=== PATIENT | female | born 1945 | race Caucasian/White ===

== ENCOUNTER 2017-12-06 12:47 | Emergency (ER) | payer OTHER, MEDICARE ==
[~2017-12-06] VITALS: Ht 167.6 cm; Wt 68.4 kg
[2017-12-06 12:59] VITALS: TEMP 36.7; Ht 167.6 cm; Wt 68.4 kg
[2017-12-06 13:44] VITALS: O2SAT 95
[2017-12-06 14:00] LABS: BASO % 0.3 %; BASO ABS # 0.03 K/uL (0-0.2); EOS % 0.7 %; EOS ABS # 0.07 K/uL (0-0.5); HEMATOCRIT 42.4 % (37-47); HEMOGLOBIN 14.4 g/dL (12.0-16.0); IG# 0.02 K/uL (0.00-0.02); LYMPH % 15.2 %; LYMPH ABS # 1.56 K/uL (1.2-3.4); MEAN CELL VOLUME 98.8 fL (80-100); MEAN CORPUSCULAR HEMOGLOBIN 33.6 pg (25-34); MEAN PLATELET VOLUME 8.7 fL (7.4-10.4); MONO % 5.7 %; MONO ABS # 0.59 K/uL (0.11-0.59); NEUT % 77.9 %; PLATELET COUNT 444 K/uL (130-400); RED CELL DISTRIBUTION WIDTH CV 15.6 % (11.5-14.5); RED CELL DISTRIBUTION WIDTH SD 56.9 fL (36.4-46.3); WHITE BLOOD COUNT 10.27 K/uL (4.8-10.8)
[2017-12-06] MEDS ORDERED: OPTIRAY 320 IV PRN (14:00)
[2017-12-06 14:11] LABS: PTT PATIENT 27.1 SECONDS (21.0-31.0)
[2017-12-06 14:21] LABS: CALCIUM 9.2 mg/dl (8.5-10.1); CREATININE 1.35 mg/dl (0.60-1.20); POTASSIUM 4.4 mmol/L (3.5-5.1)
--- NOTE | 2017-12-06 14:52 | DIAGNOSTIC IMAGING REPORT ---
CT ANGIOGRAM OF THE CHEST COMBO CLINICAL HISTORY: Thoracic back pain. COMPARISON STUDY: No priors. TECHNIQUE: Before and following the IV administration of 85 cc of Optiray 320, CT angiogram of the chest was performed from the thoracic inlet to the upper abdomen utilizing the dissection protocol. Images are reviewed in the axial, sagittal, and coronal planes. 3-D MIPS images are created and assessed. IV contrast was administered without complication. A dose lowering technique was utilized adhering to the principles of ALARA. CT DOSE: 272.42 mGy.cm FINDINGS: Thyroid: Imaged portions of the thyroid gland are normal in size and attenuation. Thoracic aorta: There is atherosclerotic calcification of the thoracic aorta, which is normal in caliber and demonstrates 4-vessel variant arch anatomy. No dissection is seen. Pulmonary vasculature: The main pulmonary arteries are dilated suggesting pulmonary artery hypertension. There are no central filling defects identified in the pulmonary vessels to suggest pulmonary embolus. Note that this examination was not specifically protocoled to assess for pulmonary emboli. Heart: The heart is enlarged and without pericardial effusion. There are coronary artery calcifications. Lungs and pleural spaces: Moderate to advanced emphysema is identified. The trachea is patent. There is a 1.1 cm spiculated nodule in the left upper lobe seen on image #184. No additional pulmonary lesion is identified. No airspace consolidation is seen and there is no pleural effusion. There are foci of bibasilar scarring/atelectasis. Lower neck: No supraclavicular adenopathy is identified. Mediastinum: There is a large heterogeneous mass lesion versus nelida aggregate centered in the AP window. This measures approximately 4.5 x 6.5 x 5 cm. This encases the left mainstem bronchus with greater than 50% luminal narrowing. This partially encases the esophagus which is deviated to the right, and also causes mass effect on the left main pulmonary artery. The left main pulmonary artery is widely patent. No additional mediastinal lesion is seen. Heike: Clear. Axillae: There is no axillary lymphadenopathy. Upper abdomen: There is an aneurysm of the upper abdominal aorta at and just below the level of the esophageal hiatus. This measures 4.4 x 3.9 cm. Thrombus is noted within the aneurysm sac. Partially visualized upper abdominal viscera is within normal limits. Skeletal structures: The skeletal structures are osteopenic. No lytic or blastic bony lesions are seen. Mild thoracic scoliosis is noted. IMPRESSION: 1. There is no evidence of pulmonary embolus in the main, lobar, or segmental pulmonary arteries. 2. Cardiomegaly and emphysema. 3. There is a 1.1 cm spiculated nodule in the left upper lobe. This should be considered lung cancer until proven otherwise. 4. 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 This encases the left mainstem bronchus with greater than 50% narrowing. This also partially encases the esophagus which is deviated to the right as well as the left main pulmonary artery. This is also consistent with neoplasm. 5. There is no airspace consolidation typical for pneumonia or pleural effusion. 6. There is a 4.4 x 3.9 cm aneurysm of the proximal abdominal aorta located at and below the level of the esophageal hiatus. 7. Additional findings as above. Electronically signed by: Julian Auguste M.D. 12/06/2017 2:50 PM Dictated Date/Time: 12/06/2017 2:38 PM
[2017-12-06] MEDS ORDERED: TYLOTC500 PO (14:59)
[2017-12-06] MEDS ORDERED: CZR50 PO (14:59)
[2017-12-06] MEDS ORDERED: LEVO150T PO (14:59)
[2017-12-06] MEDS ORDERED: LORAZEPAM 1 MG TAB SL STA (15:29)
[2017-12-06 18:19] VITALS: BP 137/81; PULSE 115; O2SAT 95
--- NOTE | 2017-12-06 19:06 | EMERGENCY ROOM VISIT NOTE ---
History Report prepared by Armen: Naomi Govea Under the Supervision of: Dr. Manuel Villa M.D. First contact with patient: 13:23 Chief Complaint: BACK PAIN Stated Complaint: BACK AND SIDE PAIN History of Present Illness The patient is a 72 year old female who presents to the Emergency Room with complaints of right-sided back pain beginning 2 weeks ago. She states that laying on her back exacerbates her pain. She denies injuring her back, but reports that she has been coughing for about a year which she thinks may have caused her pain. She states that she smokes a half a pack or more per day and that she has emphysema. The patient reports that she has been feeling more short of breath lately, and that she has also has had brief sharp chest pains. She states that she has been having this chest pain only over the last couple of days and that it is waxing and waning. The patient denies fevers, abdominal pain, blood in her urine, and swelling in her legs. She reports that she has hypertension, but that she has never had a blood clot before. The patient states that she has a sedentary lifestyle. Source of History: patient Onset: 2 weeks ago Position: back (right-sided) Quality: other (pain) Modifying Factors (Worsening): other (laying on back) Associated Symptoms: + cough, + chest pain (sharp), + SOB, No fevers, No abdominal pain Note: denies: blood in urine, swelling in legs Review of Systems See HPI for pertinent positives & negatives. A total of 10 systems reviewed and were otherwise negative. Past Medical & Surgical Medical Problems: (1) Emphysema lung Family History No pertinent family history Social History Smoking Status: Current Every Day Smoker Marital Status: single Current/Historical Medications Scheduled Acetaminophen (Tylenol), 1,000 MG PO Q4 Levothyroxine Sodium (Synthroid), 150 MCG PO DAILY Losartan Potassium (Losartan Potassium), 50 MG PO DAILY Allergies Coded Allergies: No Known Allergies (Unverified , 12/06/17) Physical Exam Vital Signs Date Time Temp Pulse Resp B/P (MAP) Pulse Ox O2 Delivery O2 Flow Rate FiO2 12/06/17 18:19 115 18 137/81 95 12/06/17 16:42 120 22 161/92 94 Room Air 12/06/17 13:44 95 Room Air 12/06/17 12:59 36.7 104 20 149/74 95 Room Air Physical Exam Constitutional: Vital signs reviewed. Eyes: Pupils are equal round reactive to light. Conjunctiva are noninjected. ENT: Pharynx is clear without erythema or exudate. Mucous membranes are moist. Neck supple without meningeal signs. Respiratory: Clear to auscultation bilaterally. Breath sounds are equal bilaterally. Cardiovascular: Regular rate and rhythm. No rubs or gallops. GI: Soft, nondistended and nontender. Bowel sounds are present. Musculoskeletal: No peripheral edema. No lower extremity tenderness. No tenderness over the ribs. Integumentary: No cyanosis. Neurological: The patient is awake and alert. No focal deficits. Psychiatric: Normal affect. Medical Decision & Procedures ER Provider Diagnostic Interpretation: Radiology results as stated below per my review and the radiologist's interpretation: CT ANGIOGRAM OF THE CHEST COMBO CLINICAL HISTORY: Thoracic back pain. COMPARISON STUDY: No priors. TECHNIQUE: Before and following the IV administration of 85 cc of Optiray 320, CT angiogram of the chest was performed from the thoracic inlet to the upper abdomen utilizing the dissection protocol. Images are reviewed in the axial, sagittal, and coronal planes. 3-D MIPS images are created and assessed. IV contrast was administered without complication. A dose lowering technique was utilized adhering to the principles of ALARA. CT DOSE: 272.42 mGy.cm FINDINGS: Thyroid: Imaged portions of the thyroid gland are normal in size and attenuation. Thoracic aorta: There is atherosclerotic calcification of the thoracic aorta, which is normal in caliber and demonstrates 4-vessel variant arch anatomy. No dissection is seen. Pulmonary vasculature: The main pulmonary arteries are dilated suggesting pulmonary artery hypertension. There are no central filling defects identified in the pulmonary vessels to suggest pulmonary embolus. Note that this examination was not specifically protocoled to assess for pulmonary emboli. Heart: The heart is enlarged and without pericardial effusion. There are coronary artery calcifications. Lungs and pleural spaces: Moderate to advanced emphysema is identified. The trachea is patent. There is a 1.1 cm spiculated nodule in the left upper lobe seen on image #184. No additional pulmonary lesion is identified. No airspace consolidation is seen and there is no pleural effusion. There are foci of bibasilar scarring/atelectasis. Lower neck: No supraclavicular adenopathy is identified. Mediastinum: There is a large heterogeneous mass lesion versus nelida aggregate centered in the AP window. This measures approximately 4.5 x 6.5 x 5 cm. This encases the left mainstem bronchus with greater than 50% luminal narrowing. This partially encases the esophagus which is deviated to the right, and also causes mass effect on the left main pulmonary artery. The left main pulmonary artery is widely patent. No additional mediastinal lesion is seen. Heike: Clear. Axillae: There is no axillary lymphadenopathy. Upper abdomen: There is an aneurysm of the upper abdominal aorta at and just below the level of the esophageal hiatus. This measures 4.4 x 3.9 cm. Thrombus is noted within the aneurysm sac. Partially visualized upper abdominal viscera is within normal limits. Skeletal structures: The skeletal structures are osteopenic. No lytic or blastic bony lesions are seen. Mild thoracic scoliosis is noted. IMPRESSION: 1. There is no evidence of pulmonary embolus in the main, lobar, or segmental pulmonary arteries. 2. Cardiomegaly and emphysema. 3. There is a 1.1 cm spiculated nodule in the left upper lobe. This should be considered lung cancer until proven otherwise. 4. 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 This encases the left mainstem bronchus with greater than 50% narrowing. This also partially encases the esophagus which is deviated to the right as well as the left main pulmonary artery. This is also consistent with neoplasm. 5. There is no airspace consolidation typical for pneumonia or pleural effusion. 6. There is a 4.4 x 3.9 cm aneurysm of the proximal abdominal aorta located at and below the level of the esophageal hiatus. 7. Additional findings as above. Electronically signed by: Julian Auguste M.D. 12/06/2017 2:50 PM Dictated Date/Time: 12/06/2017 2:38 PM Laboratory Results 12/06/17 13:50 Red Blood Count 4.29, Mean Corpuscular Volume 98.8, Mean Corpuscular Hemoglobin 33.6, Mean Corpuscular Hemoglobin Concent 34.0, Mean Platelet Volume 8.7, Neutrophils (%) (Auto) 77.9, Lymphocytes (%) (Auto) 15.2, Monocytes (%) (Auto) 5.7, Eosinophils (%) (Auto) 0.7, Basophils (%) (Auto) 0.3, Neutrophils # (Auto) 8.00, Lymphocytes # (Auto) 1.56, Monocytes # (Auto) 0.59, Eosinophils # (Auto) 0.07, Basophils # (Auto) 0.03 12/06/17 13:50 Test 12/06/17 13:50 12/06/17 13:58 White Blood Count 10.27 K/uL (4.8-10.8) Red Blood Count 4.29 M/uL (4.2-5.4) Hemoglobin 14.4 g/dL (12.0-16.0) Hematocrit 42.4 % (37-47) Mean Corpuscular Volume 98.8 fL (80-100) Mean Corpuscular Hemoglobin 33.6 pg (25-34) Mean Corpuscular Hemoglobin Concent 34.0 g/dl (32-36) Platelet Count 444 K/uL (130-400) Mean Platelet Volume 8.7 fL (7.4-10.4) Neutrophils (%) (Auto) 77.9 % Lymphocytes (%) (Auto) 15.2 % Monocytes (%) (Auto) 5.7 % Eosinophils (%) (Auto) 0.7 % Basophils (%) (Auto) 0.3 % Neutrophils # (Auto) 8.00 K/uL (1.4-6.5) Lymphocytes # (Auto) 1.56 K/uL (1.2-3.4) Monocytes # (Auto) 0.59 K/uL (0.11-0.59) Eosinophils # (Auto) 0.07 K/uL (0-0.5) Basophils # (Auto) 0.03 K/uL (0-0.2) RDW Standard Deviation 56.9 fL (36.4-46.3) RDW Coefficient of Variation 15.6 % (11.5-14.5) Immature Granulocyte % (Auto) 0.2 % Immature Granulocyte # (Auto) 0.02 K/uL (0.00-0.02) Prothrombin Time 10.0 SECONDS (9.0-12.0) Prothromb Time International Ratio 1.0 (0.9-1.1) Activated Partial Thromboplast Time 27.1 SECONDS (21.0-31.0) Partial Thromboplastin Ratio 1.0 Anion Gap 7.0 mmol/L (3-11) Est Creatinine Clear Calc Drug Dose 35.8 ml/min Estimated GFR () 45.7 Estimated GFR (Non- 39.4 BUN/Creatinine Ratio 13.9 (10-20) Calcium Level 9.2 mg/dl (8.5-10.1) Bedside Troponin I < 0.030 ng/ml (0-0.045) Laboratory results as reviewed by me. Medications Administered Medications (Trade) Dose Ordered Sig/Natanael Route Start Time Stop Time Status Last Admin Dose Admin Lorazepam (Ativan Tab) 1 mg NOW STAT SL 12/06/17 15:29 12/06/17 15:30 DC 12/06/17 15:37 1 MG ECG Per My Interpretation Indication: SOB/dyspnea Rate (beats per minute): 71 Rhythm: normal sinus Findings: other (no ST elevation, no PVC, right atrial enlargement) Comparison ECG Date: no prior available ED Course 1324: The patient was evaluated in room C2B. A complete history and physical exam was performed. 1458: I spoke to Dr. Auguste - Radiology and he said that we got most of the patient's aneurysm on the chest CT. He said it would not be ideal to rescan her abdomen, but possible if necessary. 1520: I discussed the test results in detail with the patient and she is requesting something for anxiety. 1529: Ordered Ativan Tab 1 mg SL. 1540: I checked on the patient. She said that if she wants to be admitted she would like to go to [facility] in [place]. 1542: I spoke with Dr. Carvajal of vascular surgery who said that the patient can follow up in the office for the aneurysm. 1551: I spoke with Dr. Layton who said that if the patient wants to stay here it is possible that we could do a bronchoscopy but that it may not be possible over the weekend. He said that it would also be reasonable if she wanted to go to [facility] in [place]. 1600: They are calling [facility] to see if the patient could be transferred. She said that she wants to go home today and go tomorrow. 1618: I spoke with Dr. Chan of [facility]. She accepted the patient for transfer. 1622: I spoke to the patient and she definitely wants to go by private vehicle and not an ambulance. She understands the risks of potential decompensation on the road. Medical Decision This is a 72-year-old female who presents with right lower rib pain, chest pain and shortness of breath. Differential diagnosis includes pulmonary embolism, pneumothorax, pleurisy, rib fracture, pleural effusion, pneumonia. I did perform a limited focused review of portions of the patient's old chart on the electronic medical record. The patient has had no prior visits. I did evaluate the patient as noted above. The patient is presenting with right posterior lower rib pain which is worse when she lays on it. It is not reproducible with palpation. She also had occasional twinges of chest pain over the past 2 days with some shortness of breath. She is a smoker. She does have a history of COPD. IV access was established. The patient was placed on a continuous cardiac cath lab manager. I did order and personally review the patient's 12-lead EKG as described above. I did order and review the patient's blood work as noted in the electronic medical record. Troponin is negative. Creatinine is 1.3. I did order a CT of the chest to rule out PE. I did review the images myself as well as the radiology report as described above. The patient does not have a PE. Unfortunately she does have a mediastinal and lung mass concerning for carcinoma. She also has a abdominal aortic aneurysm. I did review the test results with the patient and her family. I discussed the aneurysm with Dr. Carvajal who stated that she does not need any acute intervention from a vascular standpoint. I did discuss the case with the study director environmental permitting specialist. He stated that the patient would need a bronchoscopy. He stated that this may be difficult to obtain over the weekend unless she decompensated. I did discuss this with the patient and she stated that she would prefer to be transferred to [place]. I did call [facility] in [place]. The hospitalist did accept her for transfer. The patient preferred to be transferred via private vehicle. She does understand the risks of decompensation on rounds today in follow-up and accepts this possibility. She was therefore transferred with her CT imaging and test results. She stated she would drive directly to [place] where she has a bed. The Hep-Lock was left in place. She was given Ativan sublingually for her understandable anxiety after receiving her diagnosis. Medication Reconcilliation Current Medication List: was personally reviewed by me Blood Pressure Screening Patient's blood pressure: Elevated blood pressure Blood pressure disposition: Referred to PCP Consults Time Called: 1542 Consulting Physician: Dr. Carvajal- Vascular Surgery Returned Call: [address] Carvajal of vascular surgery who said that the patient can follow up in the office for the aneurysm. Additional Consults: Time Called: 1547 Consulted Physician: Dr. Layton- Airborne Operations Superintendent Returned Call: 1551 Additional Comments: I spoke with Dr. Layton who said that if the patient wants to stay here it is possible that we could do a bronchoscopy but that it may not be possible over the weekend. He said that it would also be reasonable if she wanted to go to the [facility] in [place]. Time Called: 1610 Consulted Physician: Dr. Chan- [place] Returned Call: 1618 Additional Comments: I spoke with Dr. Chan of [facility]. She accepted the patient for transfer. Impression Primary Impression: Mediastinal mass Additional Impressions: Mass of left lung AAA (abdominal aortic aneurysm) Right flank pain Scribe Attestation The scribe's documentation has been prepared under my direct and personally reviewed by me in its entirety. I confirm that the note above accurately reflects all work, treatment, procedures, and medical decision making performed by me. Departure Information Dispostion Transfer Acute Care Facility Referrals No Doctor, Assigned (PCP) Patient Instructions My [facility] Problem Qualifiers Additional Impressions: AAA (abdominal aortic aneurysm) Presence of rupture: without rupture Qualified Codes: I71.4 - Abdominal aortic aneurysm, without rupture
== END 2017-12-06 18:20 | disposition short-term general hospital (02) ==
LOC: C.EDB 12:48 → C.EDC 18:20
DX: R93.8 Abnormal findings on diagnostic imaging of other specified body structures (principal); R91.8 Other nonspecific abnormal finding of lung field; I71.4 Abdominal aortic aneurysm, without rupture; R10.9 Unspecified abdominal pain; F17.200 Nicotine dependence, unspecified, uncomplicated